=== PATIENT | male | born 1955 | race Caucasian/White ===

== ENCOUNTER 2017-04-22 15:18 | Outpatient (CLI) | payer OTHER | END 2017-04-22 15:19 | disposition home or self-care (01) | LOC: BICRAD 15:18 | PROVIDERS: ATTEND Chiropractor | DX: M25.551 Pain in right hip (principal); M16.11 Unilateral primary osteoarthritis, right hip ==

== ENCOUNTER 2022-12-03 09:46 | Outpatient (CLI) | payer MEDICARE, BC | END 2022-12-03 09:47 | disposition home or self-care (01) | LOC: MRI 09:46 | PROVIDERS: ATTEND Family Medicine | DX: M47.27 Other spondylosis with radiculopathy, lumbosacral region (principal); M47.817 Spondylosis without myelopathy or radiculopathy, lumbosacral region; M47.816 Spondylosis without myelopathy or radiculopathy, lumbar region; M43.17 Spondylolisthesis, lumbosacral region | CPT/HCPCS: 72148 ==